=== PATIENT | female | born 1970 | race Caucasian/White ===

== ENCOUNTER 2016-05-11 23:42 | Emergency (ER) | payer OTHER ==
[~2016-05-11] VITALS: Ht 162.6 cm; Wt 68.1 kg
[~2016-05-11 23:42] MED LIST: BACTRIM,SEPT1 TABLET PO; CEFDINIR300 MG PO; EXCEDRIN1 TABLET PO; FLEXERIL10 MG PO; IBUPROFEN600 MG PO; INDOCIN50 MG PO; MOTRIN600 MG PO; MOTRIN800 MG PO; NAPROSYN500 MG PO; NICOTINE PATCH1 EAC2 TD; NOHOMEMEDS; NORCO 5/3251 TABLET PO; OMEPRAZOLE20 M2 PO; PERCOCET 5/31 TABLET PO; PREDNISONE10 MG PO; TRAMADOL HCL50 MG PO; TYLENOL EXTRA500 MG PO; ULTRAM50 MG PO; VALIUM2 MG PO; VICODIN 5-3001 EACH PO; ZOFRAN4 MG PO
[2016-05-12] MEDS ORDERED: PERCOCET 5/31 TABLET PO (01:22)
[2016-05-12] MEDS ORDERED: NAPROSYN500 MG PO (01:22)
[2016-05-12 01:29] VITALS: BP 165/97
== END 2016-05-12 01:33 | disposition home or self-care (01) ==
LOC: EME 23:42
DX: S56.812A Strain of other muscles, fascia and tendons at forearm level, left arm, initial encounter (principal); X50.9XXA Other and unspecified overexertion or strenuous movements or postures, initial encounter; Y99.0 Civilian activity done for income or pay; F17.200 Nicotine dependence, unspecified, uncomplicated
CPT/HCPCS: 73080; 99281; 99284

== ENCOUNTER 2016-08-19 08:33 | Emergency (ER) | payer OTHER ==
[~2016-08-19] VITALS: Ht 162.6 cm; Wt 67.0 kg
[2016-08-19] MEDS ORDERED: FLEXERIL10 MG PO (08:56)
[2016-08-19] MEDS ORDERED: NAPROSYN500 MG PO (08:56)
[2016-08-19 09:56] VITALS: BP 150/88
== END 2016-08-19 09:57 | disposition home or self-care (01) ==
LOC: EME 08:33
DX: S80.01XA Contusion of right knee, initial encounter (principal); W22.8XXA Striking against or struck by other objects, initial encounter; F17.200 Nicotine dependence, unspecified, uncomplicated
CPT/HCPCS: 99281; 99283; J1885

== ENCOUNTER 2016-11-24 19:04 | Emergency (ER) | payer OTHER ==
[~2016-11-24] VITALS: Ht 162.6 cm; Wt 65.7 kg
[2016-11-24 20:50] LABS: HEMATOCRIT 40.1 % (36.0-46.0); MCH 31.2 PG (29.0-34.0); MCHC 33.9 G/DL (30.0-36.0); RBC DIS.WIDTH-CV 12.9 % (11.8-14.6); RBC DIS.WIDTH-SD 43.3 % (39-53); RED BLOOD COUNT 4.36 M/uL (3.80-5.20); WHITE BLOOD COUNT 11.7 K/uL (4.1-10.2)
[2016-11-24 21:05] LABS: CHLORIDE 106 mEq/L (99-109); POTASSIUM 3.4 mEq/L (3.7-5.4); SODIUM 139 mEq/L (136-147)
[2016-11-24 21:08] LABS: GLUCOSE 103 mg/dL (70-99)
[2016-11-24 21:09] LABS: ANION GAP 11 MEQ/L (2-14)
[2016-11-24 21:10] LABS: TOTAL BILIRUBIN 0.3 mg/dL (0.0-1.0)
[2016-11-24 21:11] LABS: ALKALINE PHOSPHATASE 77 IU/L (3-129); GFR ESTIMATE (CALCULATED) > 59 mL/min/
[2016-11-24 21:12] LABS: UREA NITROGEN (BUN) 16 mg/dL (9-23)
[2016-11-24 21:21] LABS: QUANTITATIVE HCG < 4.0 MIU/ML
[2016-11-24 21:35] LABS: ADD MIUA? YES; BILIRUBIN NEGATIVE; BLOOD SMALL; COLOR YELLOW ((YELLOW)); GLUCOSE (STRIP) NEGATIVE; KETONES NEGATIVE; LEUKOCYTES LARGE; NITRITE NEGATIVE; PROTEIN (STRIP) 30; SPECIFIC GRAVITY 1.018 (1.000-1.030); UROBILINOGEN 0.2 MG/DL (0.2-1.0)
[2016-11-24 21:39] LABS: BACTERIA 1+ /HPF; EPITHELIAL CELLS 1+ /HPF; MUCUS 2+ /LPF; UCUL ADDED? YES; WHITE BLOOD CELLS TNTC /HPF (0-5)
[2016-11-24 21:48] LABS: MEAN PLAT.VOLUME 10.4 uM^3 (9.5-12.4); PLAT.SUFFICIENCY ADEQUATE; PLATELET COUNT 235 K/uL (156-360)
[2016-11-24] MEDS ORDERED: ULTRAM50 MG PO (23:23)
[2016-11-24 23:35] VITALS: BP 153/98
== END 2016-11-24 23:36 | disposition home or self-care (01) ==
LOC: EME 19:04
DX: R51 Headache (principal); F17.200 Nicotine dependence, unspecified, uncomplicated
CPT/HCPCS: 70450; 80053; 81003; 84702; 85027; 87077; 87086; 87186; 99281; 99284

== ENCOUNTER 2016-12-18 16:29 | Inpatient (IN) | payer OTHER ==
[~2016-12-18] VITALS: Ht 160 cm; Wt 66.6 kg
[2016-12-18 19:03] LABS: HEMATOCRIT 38.9 % (36.0-46.0); MCH 31.1 PG (29.0-34.0); MCHC 33.2 G/DL (30.0-36.0); MCV 93.7 FL (83-99); MEAN PLAT.VOLUME 9.8 uM^3 (9.5-12.4); PLATELET COUNT 260 K/uL (156-360); RBC DIS.WIDTH-CV 13.2 % (11.8-14.6); RBC DIS.WIDTH-SD 45.1 % (39-53); RED BLOOD COUNT 4.15 M/uL (3.80-5.20); WHITE BLOOD COUNT 14.3 K/uL (4.1-10.2)
[2016-12-18 19:13] LABS: CHLORIDE 102 mEq/L (99-109); POTASSIUM 3.7 mEq/L (3.7-5.4); SODIUM 135 mEq/L (136-147)
[2016-12-18 19:15] LABS: GLUCOSE 123 mg/dL (70-99)
[2016-12-18 19:17] LABS: ANION GAP 10 MEQ/L (2-14); TOTAL BILIRUBIN 0.4 mg/dL (0.0-1.0)
[2016-12-18 19:19] LABS: ALKALINE PHOSPHATASE 97 IU/L (3-129); GFR ESTIMATE (CALCULATED) > 59 mL/min/
[2016-12-18 19:20] LABS: UREA NITROGEN (BUN) 15 mg/dL (9-23)
[2016-12-18 19:23] LABS: ADD MIUA? YES; BILIRUBIN NEGATIVE; BLOOD SMALL; COLOR YELLOW ((YELLOW)); GLUCOSE (STRIP) NEGATIVE; KETONES NEGATIVE; LEUKOCYTES LARGE; NITRITE NEGATIVE; PROTEIN (STRIP) 100; SPECIFIC GRAVITY 1.017 (1.000-1.030); UROBILINOGEN 0.2 MG/DL (0.2-1.0)
[2016-12-18 19:44] LABS: BACTERIA 3+ /HPF; CASTS NONE SEEN /LPF; CRYSTALS NONE SEEN; EPITHELIAL CELLS 1+ /HPF; MUCUS 1+ /LPF; RED BLOOD CELLS 0-5 /HPF (0-5); UCUL ADDED? YES; WHITE BLOOD CELLS TNTC /HPF (0-5)
[2016-12-19 01:16] VITALS: BP 178/80
[2016-12-19 02:10] VITALS: BP 119/70
[2016-12-19 03:45] VITALS: BP 120/69
[2016-12-19 03:52] LABS: EOSINOPHIL (%) 0.1 % (0-5); HEMATOCRIT 32.1 % (36.0-46.0); IMMATURE GRANULOCYTE COUNT 0.2 K/uL; INSTRUMENT ABS NEUTROPHIL CT 13.9 K/uL; LYMPHOCYTE COUNT 0.6 K/uL (1.0-2.8); MCHC 33.3 G/DL (30.0-36.0); MEAN PLAT.VOLUME 10.4 uM^3 (9.5-12.4); MONOCYTE (%) 4.7 % (3-12); MONOCYTE COUNT 0.7 K/uL (0-0.8); NEUTROPHIL COUNT 13.9 K/uL (1.8-6.4); PLATELET COUNT 201 K/uL (156-360); RBC DIS.WIDTH-CV 13.3 % (11.8-14.6); RBC DIS.WIDTH-SD 45.2 % (39-53); RED BLOOD COUNT 3.45 M/uL (3.80-5.20); WHITE BLOOD COUNT 15.5 K/uL (4.1-10.2)
[2016-12-19 07:41] VITALS: BP 100/58
[2016-12-19 09:33] LABS: HEMATOCRIT 30.3 % (36.0-46.0); MCH 31.6 PG (29.0-34.0); MCHC 33.3 G/DL (30.0-36.0); MCV 94.7 FL (83-99); MEAN PLAT.VOLUME 10.3 uM^3 (9.5-12.4); PLATELET COUNT 188 K/uL (156-360); RBC DIS.WIDTH-CV 13.5 % (11.8-14.6); RBC DIS.WIDTH-SD 46.2 % (39-53); WHITE BLOOD COUNT 19.9 K/uL (4.1-10.2)
[2016-12-19 09:59] LABS: ALKALINE PHOSPHATASE 51 IU/L (3-129); ANION GAP 10 MEQ/L (2-14); CHLORIDE 106 MEQ/L (99-109); GFR ESTIMATE (CALCULATED) > 59 mL/min/; POTASSIUM 3.5 MEQ/L (3.7-5.4); SAMPLE HEMOLYSIS CHECK 0; SAMPLE ICTERIC CHECK 0; SAMPLE LIPEMIA CHECK 0; SODIUM 139 MEQ/L (136-147); TOTAL BILIRUBIN 0.5 MG/DL (0.0-1.0); UREA NITROGEN (BUN) 13 mg/dL (9-23)
[2016-12-19 10:06] LABS: GLUCOSE 80 mg/dL (70-99)
[2016-12-19 15:22] VITALS: BP 114/69
[2016-12-19 19:11] VITALS: BP 101/57
[2016-12-20 00:20] VITALS: BP 109/75
[2016-12-20 07:40] VITALS: BP 125/85
[2016-12-20 08:41] LABS: HEMATOCRIT 30.2 % (36.0-46.0); MCHC 32.5 G/DL (30.0-36.0); MCV 95.6 FL (83-99); MEAN PLAT.VOLUME 10.8 uM^3 (9.5-12.4); PLATELET COUNT 149 K/uL (156-360); RBC DIS.WIDTH-CV 13.5 % (11.8-14.6); RBC DIS.WIDTH-SD 48.3 % (39-53); RED BLOOD COUNT 3.16 M/uL (3.80-5.20); WHITE BLOOD COUNT 15.6 K/uL (4.1-10.2)
[2016-12-20 09:01] LABS: ANION GAP 4 MEQ/L (2-14); CHLORIDE 106 MEQ/L (99-109); GFR ESTIMATE (CALCULATED) > 59 mL/min/; GLUCOSE 88 mg/dL (70-99); MAGNESIUM 1.6 mg/dl (1.3-2.7); POTASSIUM 3.5 MEQ/L (3.7-5.4); SAMPLE HEMOLYSIS CHECK 0; SAMPLE ICTERIC CHECK 0; SAMPLE LIPEMIA CHECK 0; SODIUM 135 MEQ/L (136-147); UREA NITROGEN (BUN) 12 mg/dL (9-23)
[2016-12-20] MEDS ORDERED: ENDOCET 5-3251 EACH PO (09:45)
[2016-12-20] MEDS ORDERED: BACTRIM,SEPT1 TABLET PO (09:45)
[2016-12-20] MEDS ORDERED: TAMSULOSIN HCL0.4 MG PO (09:45)
== END 2016-12-20 10:41 | disposition home or self-care (01) | DRG 690 ==
LOC: EME 16:29 → EDOF 12-19 00:10 → ENRESERV 12-19 00:10 → 2EASTP 12-19 00:10 → ENRESERV 12-19 00:32 → 2EASTP 12-19 01:00
PROVIDERS: Internal Medicine; Nurse Practitioner Family; Physician Assistant
PROC: BT1F1ZZ Fluoroscopy of Left Kidney, Ureter and Bladder using Low Osmolar Contrast (ICD-10-PCS; principal; 2016-12-19)
PROC: 0T778DZ Dilation of Left Ureter with Intraluminal Device, Via Natural or Artificial Opening Endoscopic (ICD-10-PCS; 2016-12-19)
DX: N13.6 Pyonephrosis (principal); N28.1 Cyst of kidney, acquired; K21.9 Gastro-esophageal reflux disease without esophagitis; R73.9 Hyperglycemia, unspecified; B96.89 Other specified bacterial agents as the cause of diseases classified elsewhere; F17.210 Nicotine dependence, cigarettes, uncomplicated; Z98.51 Tubal ligation status; Z87.440 Personal history of urinary (tract) infections
CPT/HCPCS: 74176; 80048; 80053; 81003; 83605; 83735; 85025; 85027; 85379; 87077; 87086; 87186; 93005; 93970; 99281; 99285; C1876; J0131; J0696; J1170; J1644; J1885; J2250; J2270; J3010; J7030; J7040; J7050; S0028

== ENCOUNTER → 2017-01-19 | Outpatient (CLI) | payer OTHER ==
[~2017-01-19] VITALS: Ht 167.6 cm; Wt 63.5 kg
[~2017-01-19] MED LIST changes: +ENDOCET 5-3251 EACH PO; +TAMSULOSIN HCL0.4 MG PO
== END | disposition home or self-care (01) ==
LOC: AMB 09:30
PROC: 0TF7XZZ Fragmentation in Left Ureter, External Approach (ICD-10-PCS; principal; 2017-01-19)
DX: N20.1 Calculus of ureter (principal); Z87.440 Personal history of urinary (tract) infections; Z87.442 Personal history of urinary calculi; F17.210 Nicotine dependence, cigarettes, uncomplicated; K21.9 Gastro-esophageal reflux disease without esophagitis; Z83.3 Family history of diabetes mellitus; Z82.49 Family history of ischemic heart disease and other diseases of the circulatory system
CPT/HCPCS: 74010; J0690; J1170; J1580; J2250; J3010; J7050

== ENCOUNTER 2017-02-07 12:24 | Emergency (ER) | payer OTHER ==
[~2017-02-07] VITALS: Ht 165.1 cm; Wt 64.6 kg
[2017-02-07 13:23] LABS: ADD MIUA? YES; BILIRUBIN NEGATIVE; BLOOD SMALL; COLOR YELLOW ((YELLOW)); GLUCOSE (STRIP) NEGATIVE; HEMATOCRIT 37.5 % (36.0-46.0); KETONES NEGATIVE; LEUKOCYTES MODERATE; MCH 31.4 PG (29.0-34.0); MCHC 33.1 G/DL (30.0-36.0); MCV 94.9 FL (83-99); NITRITE POSITIVE; PROTEIN (STRIP) 30; RBC DIS.WIDTH-CV 13.7 % (11.8-14.6); RBC DIS.WIDTH-SD 46.9 % (39-53); RED BLOOD COUNT 3.95 M/uL (3.80-5.20); SPECIFIC GRAVITY 1.018 (1.000-1.030); UROBILINOGEN 0.2 MG/DL (0.2-1.0); WHITE BLOOD COUNT 15.4 K/uL (4.1-10.2)
[2017-02-07 13:40] LABS: ANION GAP 7 MEQ/L (2-14); CHLORIDE 107 MEQ/L (99-109); POTASSIUM 3.8 MEQ/L (3.7-5.4); SAMPLE HEMOLYSIS CHECK 0; SAMPLE ICTERIC CHECK 0; SAMPLE LIPEMIA CHECK 0; SODIUM 140 MEQ/L (136-147); TOTAL BILIRUBIN 0.5 MG/DL (0.0-1.0)
[2017-02-07 13:45] LABS: ALKALINE PHOSPHATASE 78 IU/L (3-129); GFR ESTIMATE (CALCULATED) > 59 mL/min/; GLUCOSE 106 mg/dL (70-99); UREA NITROGEN (BUN) 12 mg/dL (9-23)
[2017-02-07 13:46] LABS: MEAN PLAT.VOLUME 9.5 uM^3 (9.5-12.4); PLAT.SUFFICIENCY ADEQUATE; PLATELET COUNT 333 K/uL (156-360)
[2017-02-07 13:48] LABS: QUANTITATIVE HCG < 4.0 MIU/ML
[2017-02-07 15:42] LABS: BACTERIA 4+ /HPF; CASTS NONE SEEN /LPF; CRYSTALS NONE SEEN; EPITHELIAL CELLS 2+ /HPF; MUCUS 2+ /LPF; RED BLOOD CELLS 0-5 /HPF (0-5); WHITE BLOOD CELLS 40-50 /HPF (0-5)
[2017-02-07] MEDS ORDERED: NORCO 5/3251 TABLET PO (16:07)
[2017-02-07] MEDS ORDERED: CIPRO500 MG PO (16:07)
[2017-02-07 16:30] VITALS: BP 142/83
== END 2017-02-07 16:32 | disposition home or self-care (01) ==
LOC: EME 12:24
PROVIDERS: Physician Assistant
DX: N12 Tubulo-interstitial nephritis, not specified as acute or chronic (principal); Z87.442 Personal history of urinary calculi; Z87.440 Personal history of urinary (tract) infections; F17.200 Nicotine dependence, unspecified, uncomplicated
CPT/HCPCS: 74000; 76770; 80053; 81003; 84702; 85027; 93005; 99281; 99284; J1885

== ENCOUNTER 2017-04-22 00:06 | Emergency (ER) | payer OTHER ==
[~2017-04-22] VITALS: Ht 165.1 cm; Wt 62.4 kg
[~2017-04-22 00:06] MED LIST changes: +CIPRO500 MG PO
[2017-04-22 04:57] VITALS: BP 142/92
== END 2017-04-22 04:58 | disposition home or self-care (01) ==
LOC: EME 00:06
PROC: 0HQ1XZZ Repair Face Skin, External Approach (ICD-10-PCS; principal; 2017-04-22)
DX: S01.81XA Laceration without foreign body of other part of head, initial encounter (principal); S00.83XA Contusion of other part of head, initial encounter; Y04.0XXA Assault by unarmed brawl or fight, initial encounter; F17.200 Nicotine dependence, unspecified, uncomplicated; Z87.440 Personal history of urinary (tract) infections
CPT/HCPCS: 99281; 99284

== ENCOUNTER 2017-08-24 05:34 | Emergency (ER) | payer OTHER ==
[~2017-08-24] VITALS: Ht 162.6 cm; Wt 68.6 kg
[2017-08-24 07:49] VITALS: BP 167/88
== END 2017-08-24 07:54 | disposition home or self-care (01) ==
LOC: EME 05:34
PROC: 2W3KX1Z Immobilization of Left Finger using Splint (ICD-10-PCS; principal; 2017-08-24)
DX: S63.617A Unspecified sprain of left little finger, initial encounter (principal); X50.0XXA Overexertion from strenuous movement or load, initial encounter
CPT/HCPCS: 73140; 99281; 99283